=== PATIENT | male | born 1990 | race African-American/Black ===

== ENCOUNTER 2018-02-23 09:14 | Emergency (ER) | payer OTHER ==
[~2018-02-23] VITALS: Ht 170.2 cm; Wt 88.5 kg
[~2018-02-23 09:14] MED LIST: TRIAMCINOLONE A15 G1 TP
[2018-02-23] MEDS ORDERED: ULTRAM 50MG TAB50 MG PO (10:45)
[2018-02-23] MEDS ORDERED: PREDNISONE 20 M20 M1 PO (10:45)
[2018-02-23] MEDS ORDERED: FLEXERIL PO (10:45)
[2018-02-23 10:57] VITALS: BP 122/81
== END 2018-02-23 10:58 | disposition home or self-care (01) ==
LOC: M.ERS 09:14
DX: M75.22 Bicipital tendinitis, left shoulder (principal); F17.210 Nicotine dependence, cigarettes, uncomplicated